=== PATIENT | female | born 1940 | race Two or more races ===

== ENCOUNTER → 2023-01-16 09:27 | Outpatient (CLI) | payer SELFPAY ==
[2023-01-16 18:40] LABS: Alanine Aminotransferase 23 U/L (12-78); Albumin Level 4.1 g/dl (3.5-5.0); Albumin/Globulin Ratio 1.5 (1.1-1.8); Alkaline Phosphatase 124 U/L (38-126); Anion Gap 18.3 mEq/L (5-15); Aspartate Amino Transferase 33 U/L (14-36); Bilirubin,Total 0.6 mg/dl (0.2-1.3); Blood Urea Nitrogen 16 mg/dl (7-17); Calcium 8.9 mg/dl (8.4-10.2); Carbon Dioxide 30 mmol/L (22.0-30.0); Chloride 93 mmol/L (98-107); Chol/HDL Ratio 5.2 (1-3.5); Cholesterol 183 mg/dl (140-200); Estimated Glomerular Filt Rate 152 ml/min (>60); GFR (African American) 184 ML/MIN (>60); Globulin 2.7 g/dL (1.3-3.2); Glucose 89 mg/dl (74-100); HDL Cholesterol 35 mg/dl (40-60); Potassium 4.3 mmoL/L (3.5-5.1); Sodium 137 mmol/L (136-145); Total Protein,Serum 6.8 g/dl (6.3-8.2); Triglycerides 262 mg/dl (30-150); VLDL Cholesterol 52 mg/dL (0-40)
[2023-01-16 18:43] LABS: Hemoglobin A1C 6.1 % (4.0-6.0)
[2023-01-16 18:51] LABS: Direct LDL Cholesterol 110.08 mg/dL (100-129)
== END ==
PROVIDERS: PCP Nurse Practitioner; Visit Provider Nurse Practitioner
DX: I10 Essential (primary) hypertension (principal); R01.1 Cardiac murmur, unspecified; R73.09 Other abnormal glucose
CPT/HCPCS: 80053; 80061; 83036; 84443